=== PATIENT | male | born 1930 | race Caucasian/White ===

== ENCOUNTER 2016-08-14 12:00 | Day surgery (SDC) | payer MEDICARE ==
[~2016-08-14] VITALS: Ht 180.3 cm; Wt 100.0 kg
[~2016-08-14 12:00] MED LIST: ACET-171 PO; ASPI-973 PO; BENA40TA2 PO; CALC500T9 PO; CEPH-512 PO; ESCI10TA52 PO; FERR-83 PO; FINA5TAB9 PO; FUR20 PO; GALA8TAB PO; LACT1CAP38 PO; LOPE1TAB13 PO; MEMA28CA PO; NAPR220C11 PO; OMEP20CA11 PO; ONDA8TAB7 PO; POTA10CA42 PO; POTA20TA16 PO; Sodium Chloride LOK Flush 10 mL Syringe IV PRN; TAMS0.4C98 PO; [UNRECOGNIZED DRUG - OTHER] EXT; fentaNYL-PF 50 mCg/mL 2 mL Inj IVPUSH PRN
[2016-08-14 13:39] VITALS: BP 138/78; PULSE 54; RESP 17; O2SAT 98
[2016-08-14] MEDS ORDERED: 0.9% Sodium Chloride 1,000 ML IV ONE (14:44)
[2016-08-14 14:56] VITALS: BP 126/63; PULSE 55; RESP 16; O2SAT 96
[2016-08-14 15:06] VITALS: BP 126/65; PULSE 56; RESP 16; O2SAT 96
[2016-08-14 15:16] VITALS: BP 144/68; PULSE 51; RESP 16; O2SAT 95
[2016-08-14 15:26] VITALS: BP 140/69; PULSE 54; RESP 16; O2SAT 100
[2016-08-14 15:51] VITALS: BP 146/64; PULSE 59; RESP 16; O2SAT 99
--- NOTE | 2016-08-15 02:57 | ENDO ---
[address] [address] ENDOSCOPY PROCEDURE PATIENT: DK HOLLAND : 1930 MR#: [id number] ADMIT: 08/14/2016 JOB ID: [id number] DATE: 08/14/2016 OPERATION: 1. Esophagogastroduodenoscopy with biopsy. 2. Colonoscopy. PREOPERATIVE DIAGNOSIS (ES): Iron deficiency anemia. POSTOPERATIVE DIAGNOSIS(ES): 1. 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 2. Large hiatal hernia. 3. Moderate sigmoid and ascending colon diverticulosis. ANESTHESIA: 1. Fentanyl 75 mcg. 2. Versed 2 mg IV administered. COMPLICATIONS: None. BLOOD LOSS: Minimal. DESCRIPTION OF PROCEDURE: After risks and benefits to the patient, informed consent was obtained. After anesthesia administered, upper endoscope was inserted in mouth into the esophagus, stomach, and second portion of duodenum. Mucosa carefully examined. After procedure was done, the scope was withdrawn and the procedure terminated. Colonoscope was inserted from the rectum to the terminal. Mucosa carefully examined. Prep of the patient was fair. After procedure was done, the scope withdrawn and the procedure terminated. FINDINGS: Upon inspection of the esophagus, there was a suture that was seen from 38-35 cm from the incisors. The scope was able to pass through the stricture. Z-line located 40 cm from incisors. Upon entering stomach, there is no masses, ulcers or lesions seen. Retroflexion showed a large hiatal hernia. Duodenal bulb, first and second portion normal. Biopsies taken of the antrum body, stomach and esophageal stricture. Upon inspection of the anus, no masses, hemorrhoids, ulcers or fissures were seen. Throughout the entire examination, there was moderate sigmoid and ascending colon diverticulosis. No polyps or masses were seen. Retroflexion was normal. IMPRESSIONS: 1. Moderate sigmoid and ascending colon diverticulosis. 2. Large hiatal hernia. 3. Esophageal stricture from 38-35 cm from incisors s/p bx RECOMMENDATION: 1. Await pathology results. 2. Follow up with GI clinic as needed. 3. If the biopsies of the esophageal stricture are negative, then referral for an EUS with FNA of the esophageal stricture to rule out malignancy. [facility]
--- NOTE | 2016-08-18 07:33 | PATH ---
SURGICAL PATHOLOGY Attending Physician:Romulo Thomas MD CASE STATUS: Signed Out PATIENT NAME: DK HOLLAND PID: [id number] : 1930 DATE COLLECTED:08/14/2016 00:00 SPECIMEN: 1: Duodenum, Biopsy 2: Stomach, Antrum, Biopsy 3: Gastric, Biopsy 4: Esophagus, Biopsy CLINICAL HISTORY: 1). DUODENAL BIOPSY 2). ANTRUM BIOPSY 3). GASTRIC BIOPSY 4). ESOPHAGUS BIOPSY FINAL DIAGNOSIS: 1.DUODENAL BIOPSY: CHANGES OF CHRONIC DUODENITIS WITH AREAS OF MUCOSAL SCARRING. Negative for dysplasia and malignancy. 2.ANTRUM BIOPSY: MILD CHRONIC GASTRITIS INVOLVING ANTRAL MUCOSA. Negative for evidence of Helicobacter. Negative for intestinal metaplasia. Negative for dysplasia and malignancy. 3.GASTRIC BIOPSY: MILD CHRONIC GASTRITIS INVOLVING FUNDIC MUCOSA. Negative for evidence of Helicobacter. Negative for intestinal metaplasia. Negative for dysplasia and malignancy. 4.ESOPHAGUS BIOPSY: FRAGMENTS OF SQUAMOUS MUCOSA AND GASTRIC CARDIA-TYPE MUCOSA WITH ACUTE AND CHRONIC INFLAMMATION AND SUPERFICIAL ULCERATION. NEGATIVE FOR SPECIALIZED METAPLASIA OF HUNTER' S ESOPHAGUS. Negative for dysplasia and malignancy. Negative for squamous intraepithelial eosinophils. ICD10 code K29.70 GROSS DESCRIPTION: The specimen is received in two formalin filled containers labeled with the patient's name. 1). The specimen is sublabeled "duodenum" and consists of 3 portions of tissue which aggregate to 0.3 x 0.3 x 0.2 CM. The specimen is entirely submitted in cassette 1A. 2). The specimen is sublabeled "antrum" and consists of 2 portions of tissue which aggregate to 0.3 x 0.2 x 0.2 CM. The specimen is entirely submitted in cassette 2A. 3). The specimen is sublabeled "gastric" and consists of 2 portions of tissue which aggregate to 0.3 x 0.2 x 0.2 CM. The specimen is entirely submitted in cassette 3A. 4). The specimen is sublabeled "esophagus" and consists of 2 portions of tissue which aggregate to 0.3 x 0.3 x 0.2 CM. The specimen is entirely submitted in cassette 4A. 08/15/2016 DAC MICRO DESCRIPTION: See diagnosis. ICD-9 CODES: CPT CODES: 1: 07647 2: 15165 3: 74167 4: 73117 Electronically Signed Out Ean Oh MD [facility] [address], [place] [address] Technical component performed at [facility], [address], [place], [address]
== END 2016-08-14 23:59 | disposition home or self-care (01) ==
LOC: END 12:00
PROVIDERS: ATTEND Internal Medicine Gastroenterology
DX: D50.9 Iron deficiency anemia, unspecified (principal); K57.30 Diverticulosis of large intestine without perforation or abscess without bleeding; K22.2 Esophageal obstruction; K44.9 Diaphragmatic hernia without obstruction or gangrene; G30.9 Alzheimer's disease, unspecified; F02.80 Dementia in other diseases classified elsewhere, unspecified severity, without behavioral disturbance, psychotic disturbance, mood disturbance, and anxiety; I10 Essential (primary) hypertension; Z86.73 Personal history of transient ischemic attack (TIA), and cerebral infarction without residual deficits; Z79.82 Long term (current) use of aspirin
CPT/HCPCS: 43239; 45378; 99153; G0500; J2250; J3010; J7030